=== PATIENT | female | born 1985 | race Caucasian/White ===

== ENCOUNTER 2022-11-02 11:13 | Emergency (ER) | payer OTHER ==
[~2022-11-02] VITALS: Ht 170.2 cm; Wt 55.0 kg
[2022-11-02 11:28] VITALS: BP 120/85
[2022-11-02 11:30] VITALS: BP 118/86
[2022-11-02] MEDS ORDERED: NAPROXEN500 MG PO (13:21)
[2022-11-02] MEDS ORDERED: METHOCARBAMOL500 MG PO (13:21)
[2022-11-02 13:39] VITALS: BP 118/86
== END 2022-11-02 13:40 | disposition home or self-care (01) | DRG 206 ==
LOC: ED 11:13
DX: S22.31XA Fracture of one rib, right side, initial encounter for closed fracture (principal); W50.0XXA Accidental hit or strike by another person, initial encounter

== ENCOUNTER 2024-03-06 12:51 | Emergency (ER) | payer OTHER ==
[2024-03-06] VITALS (13 sets, daily range): BP systolic 101–117; BP diastolic 67–78
[~2024-03-06] VITALS: Ht 170.2 cm; Wt 52.1 kg
[~2024-03-06 12:51] MED LIST: METHOCARBAMOL500 MG PO; NAPROXEN500 MG PO
[2024-03-06] MEDS ORDERED: LACTATED RINGER'S 1,000 ML IV ONE (13:05)
[2024-03-06 13:19] LABS: BASO% 0.3 % (0-3); EOS% 0.9 % (0-8); HEMATOCRIT 38.8 % (37.0-47.0); HEMOGLOBIN 13.9 g/dl (12.0-16.0); IMMATURE GRANULOCYTES 0.1 % (0.0-5.0); LYMPH% 16.8 % (15-41); MEAN CELL VOLUME 87.6 fL CALC (80.0-100.0); MEAN CORPUSCULAR HGB 31.4 pG CALC (26.0-32.0); MEAN CORPUSCULAR HGB CONC 35.8 g/dL CAL (32.0-36.0); MONO% 4.2 % (2-13); NEUT# 6.81 thou/uL (2.00-7.15); NEUT% 77.7 % (42-76); RED BLOOD COUNT 4.43 mill/uL (4.20-5.60); RED CELL DISTRI WIDTH 12.1 % (11.5-15.5)
[2024-03-06 13:30] LABS: ALBUMIN 4.2 g/dL (3.2-5.0); BILIRUBIN, TOTAL 0.9 mg/dL (0.02-1.3); CREATININE 0.6 mg/dL (0.5-1.0)
[2024-03-06] MEDS ORDERED: INSULIN REGULAR (HUMAN) 100 UNIT/ML INJ IV ONE (13:40)
== END 2024-03-06 16:11 | disposition home or self-care (01) | DRG 639 ==
LOC: ED 12:51
PROVIDERS: Family Medicine
DX: E11.65 Type 2 diabetes mellitus with hyperglycemia (principal); E86.0 Dehydration; E11.40 Type 2 diabetes mellitus with diabetic neuropathy, unspecified; T38.3X6A Underdosing of insulin and oral hypoglycemic [antidiabetic] drugs, initial encounter; Z91.120 Patient's intentional underdosing of medication regimen due to financial hardship